=== PATIENT | female | born 1995 | race American Indian/Alaskan Native ===

== ENCOUNTER 2018-10-14 19:41 | Outpatient (CLI) | payer OTHER ==
[2018-10-14] MEDS ORDERED: LACTATED RINGERS 1,000 ML ONE (20:50)
[2018-10-14 21:18] LABS: Mucus,Urine 3+ /HPF
[2018-10-14 21:19] LABS: Bilirubin,Urine NEG (Negative); Blood,Urine NEG (Negative); Color,Urine Amber (Yellow)
[2018-10-14] MEDS ORDERED: LACTATED RINGERS 1,000 ML IV ONE (21:28)
[2018-10-14 23:07] VITALS: BP 107/65
== END 2018-10-14 23:00 | disposition home or self-care (01) ==
LOC: TRG 19:41
PROVIDERS: ATTEND Obstetrics & Gynecology
DX: O47.02 False labor before 37 completed weeks of gestation, second trimester (principal); Z3A.23 23 weeks gestation of pregnancy
CPT/HCPCS: 81001; J7120

== ENCOUNTER 2018-12-24 11:57 | Outpatient (CLI) | payer OTHER ==
[2018-12-24] MEDS ORDERED: LACTATED RINGERS 500 ML IV ONE (12:00)
[2018-12-24 12:54] LABS: Bilirubin,Urine NEG (Negative); Blood,Urine NEG (Negative); Calcium Oxalate Crystals,Urine FEW; Color,Urine Straw (Yellow); Protein,Urine <15 mg/dL mg/dL (Negative); WBC,Urine < 1.0 /HPF (0.0-6.0)
[2018-12-24] MEDS ORDERED: LACTATED RINGERS 1,000 ML ONE (15:23)
== END 2018-12-24 16:08 | disposition home or self-care (01) ==
LOC: TRG 11:57
PROVIDERS: ATTEND Obstetrics & Gynecology
DX: O26.893 Other specified pregnancy related conditions, third trimester (principal); R10.9 Unspecified abdominal pain; O60.03 Preterm labor without delivery, third trimester; O99.333 Smoking (tobacco) complicating pregnancy, third trimester; F17.200 Nicotine dependence, unspecified, uncomplicated; Z3A.33 33 weeks gestation of pregnancy
CPT/HCPCS: 59025; 81001; J7120; 96360

== ENCOUNTER 2019-01-11 15:24 | Observation (INO) | payer OTHER ==
[2019-01-11] MEDS ORDERED: BRETHINE SUB-Q ONE (16:21)
[2019-01-11] MEDS ORDERED: CELESTONE SOLUSPAN IM STA (16:21)
[2019-01-11] MEDS ORDERED: LACTATED RINGERS 1,000 ML IV ONE (16:21)
[2019-01-11] MEDS ORDERED: BRETHINE SUB-Q STA (16:59)
[2019-01-11] MEDS ORDERED: BRETHINE IVP PRN (17:45)
[2019-01-11] MEDS ORDERED: LACTATED RINGERS 1,000 ML IV SCH (19:00)
[2019-01-11 20:15] LABS: Basophils % (Auto) 0.1 % (0.0-1.8); Eosinophils % (Auto) 0.2 % (0.0-4.3); Hematocrit 29.5 % (30.3-42.9); Hemoglobin 9.3 gm/dl (10.1-14.3); Lymphocytes # (Auto) 2.5 K/mm3 (1.2-5.4); Lymphocytes % (Auto) 24.7 % (13.4-35.0); Mean Corpuscular HGB Conc 32 % (30-34); Mean Corpuscular Volume 79 fl (79-97); Monocytes # (Auto) 0.8 K/mm3 (0.0-0.8); Monocytes % (Auto) 7.9 % (0.0-7.3); Platelet Count 125 K/mm3 (140-440); Red Blood Count 3.71 M/mm3 (3.65-5.03); Red Cell Distribution Width 14.8 % (13.2-15.2)
[2019-01-11] MEDS ORDERED: AMPICILLIN/NS 2 GM/100 ML 2 GM/100 ML BAG IV ONE (20:20)
[2019-01-11] MEDS ORDERED: STADOL IV PRN (20:21)
[2019-01-11] MEDS ORDERED: MAGNESIUM SULFATE 40GM/1000ML 40 GM/1,000 ML BAG IV SCH (20:28)
[2019-01-11] MEDS ORDERED: MAGNESIUM SULFATE 4GM/100ML 4 GM/100 ML BAG IV ONE (20:34)
--- NOTE | 2019-01-11 21:25 | Ultrasound Report ---
PROCEDURE: US OB LIMITED TECHNIQUE: Real-time limited sonographic examination was performed for evaluation of position and amniotic fluid index for each fetus with image documentation (1 or more fetuses). HISTORY: DESTINI and presentation COMPARISONS: None . FINDINGS: FETUS IUP: Single living intrauterine . Position: Cephalic . Placental position: Fundal, without previa . Amniotic fluid volume: Normal. Amniotic fluid index is 7.5 cm Heart rate and rhythm: 146 BPM, Regular . IMPRESSION: presentation is cephalic and the amniotic fluid index is within normal limits This document is electronically signed by Juan Love MD., Jan 11 2019 09:23:04 PM ET
--- NOTE | 2019-01-11 21:26 | Ultrasound Report ---
PROCEDURE: US OB BPP WO NON-STRESS TECHNIQUE: Sonographic evaluation for breathing, movement, tone, and amniotic flui d volume was performed. HISTORY: Pre-term COMPARISONS: None . FINDINGS: FETUS Amniotic fluid volume Normal-score 2. At least one vertical pocket >2 cm or more in vertical axis . breathing: Normal-score 2 . movement: Normal-score 2 . tone: Normal-score 2 . Score: 8 of 8 . heart rate is 146 bpm IMPRESSION: Normal biophysical profile . This document is electronically signed by Juan Love MD., Jan 11 2019 09:24:03 PM ET
[2019-01-12] MEDS: AMPICILLIN/NS 1 GM/50 ML 1 GM/50 ML BAG IV SCH ×7 (05:00→21:49)
[2019-01-12] MEDS: LACTATED RINGERS 1,000 ML IV SCH ×2 (10:19→21:52)
[2019-01-13] MEDS: AMPICILLIN/NS 1 GM/50 ML 1 GM/50 ML BAG IV SCH ×3 (01:53→09:43)
[2019-01-13] MEDS: LACTATED RINGERS 1,000 ML IV SCH (05:49)
[2019-01-13 09:47] VITALS: BP 93/50
--- NOTE | 2019-01-13 14:23 | History and Physical Report ---
History of Present Illness Date of examination: 01/13/19 Date of admission: 01/11/19 18:24 Chief complaint: This is a 23 yo at 35+6 weeks here for contractions. She was noted to be 3cm and bernice. She admits to bernice for 1 day and came in. She roports good movement. No vb nor leaking. Denies sierra, bv, scotomata nor ruq pain. 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 Records unavailable. Past History Past Medical History: no pertinent history Past Surgical History: no surgical history Family/Genetic History: none Social history: single. denies: smoking, alcohol abuse, prescription drug abuse - Obstetrical History Expected Date of Delivery: 02/09/19 Actual Gestation: 36 Week(s) 1 Day(s) : 2 Para: 1 Hx # Term Pregnancies: 1 Number of Pregnancies: 0 Spontaneous Abortions: 0 Induced : 0 Number of Living Children: 1 Medications and Allergies Allergies Allergy/AdvReac Type Severity Reaction Status Date / Time No Known Allergies Allergy Unverified 10/14/18 20:29 Home Medications Medication Instructions Recorded Confirmed Last Taken Type No Known Home Medications [No 01/11/19 01/11/19 Unknown History Reported Home Medications] Active Meds: Active Medications Butorphanol Tartrate (Stadol) 2 mg IV Q2H PRN PRN Reason: Labor Pain Last Admin: 01/11/19 22:02 Dose: 2 mg Documented by: Lactated Ringer's (Lactated Ringers) 1,000 mls @ 125 mls/hr IV DIRECT LEONARD Last Admin: 01/13/19 05:49 Dose: 125 mls/hr Documented by: Ampicillin Sodium (Ampicillin/Ns 1 Gm/50 Ml) 1 gm in 50 mls @ 100 mls/hr IV Q4HR LEONARD; Protocol Last Admin: 01/13/19 09:43 Dose: 100 mls/hr Documented by: Review of Systems All systems: negative Constitutional: no fever, no chills Genitourinary: contractions, no vaginal bleeding, no leakage of fluid - Vital Signs Vital signs: Vital Signs Pulse BP Pulse Ox 100 H 111/67 94 01/11/19 15:49 01/11/19 15:49 01/11/19 15:49 Temp Pulse Resp BP Pulse Ox 97.9 F 103 H 16 93/50 100 01/13/19 01:34 01/13/19 09:45 01/13/19 01:34 01/13/19 09:45 01/11/19 17:48 - Physical Exam Breasts: Positive: normal Cardiovascular: Regular rate, Normal S1 Lungs: Positive: Clear to auscultation, Normal air movement Abdomen: Positive: normal appearance, soft, normal bowel sounds. Negative: distention, tenderness, guarding Genitourinary (Female): Positive: normal external genitalia, normal perenium Vagina: Positive: normal moisture Uterus: Positive: normal size, enlarged Anus/Rectum: Positive: normal perianal skin Extremities: Positive: normal. Negative: tenderness Deep Tendon Reflex Grade: Normal +2 - Obstetrical FHR: category 1 Cervical Dilatation: 3 Uterine Contraction Pattern: Regular Uterine Tone Measurement Phase: Contraction Uterine Contraction Intensity: Mild Results Result Diagrams: 01/11/19 19:42 All other labs normal. Assessment and Plan A/P Late entry to note from yesterday HD#2 labor GBS unknown records unavailable IVF, labs observation s/p course of BMZ stable -no change in cervix for >24 hrs ; no contractions reassuring APT testing : 01/12 BPP 8/8 DESTINI 7.5 Discharge home with f/u tomorrow to [facility] appt on Spoke with Dr. Claritza Valadez concerning her care
== END 2019-01-13 14:49 | disposition home or self-care (01) ==
LOC: TRG 15:24 → LD 18:24
PROVIDERS: ADMIT Obstetrics & Gynecology; ATTEND Obstetrics & Gynecology
DX: O62.9 Abnormality of forces of labor, unspecified (principal); O60.03 Preterm labor without delivery, third trimester; Z3A.36 36 weeks gestation of pregnancy
CPT/HCPCS: 36415; 59025; 76815; 76819; 83735; 85025; 86850; 86900; 86901; 96365; 96366; 96368; 96372; 96375; G0378; J0290; J0595; J0702; J3105; J3475; J7120; 96360

== ENCOUNTER 2019-01-16 15:12 | Inpatient (IN) | payer OTHER ==
[2019-01-16] MEDS ORDERED: AMPICILLIN/NS 2 GM/100 ML 2 GM/100 ML BAG IV ONE (21:20)
[2019-01-16] MEDS ORDERED: BRETHINE SUB-Q PRN (21:20)
[2019-01-16] MEDS ORDERED: XYLOCAINE 2% INFILTRATI ONE (21:20)
[2019-01-16] MEDS ORDERED: BRETHINE IVP PRN (21:20)
[2019-01-16] MEDS ORDERED: MINERAL OIL PO PRN (21:20)
[2019-01-16] MEDS ORDERED: PITOCin/NS 30 UNIT/500ML 30 UNITS/500 ML BAG IV SCH (21:22)
[2019-01-16] MEDS: LACTATED RINGERS 1,000 ML IV SCH (21:56)
[2019-01-16] MEDS ORDERED: PITOCin/NS 20 UNIT/1000ML DRIP 20 UNITS/1,000 ML BAG IV SCH (22:00)
[2019-01-16] MEDS ORDERED: AMPICILLIN/NS 1 GM/50 ML 1 GM/50 ML BAG IV SCH (22:00)
[2019-01-16] MEDS ORDERED: LACTATED RINGERS 1,000 ML IV SCH (22:00)
[2019-01-16 22:08] LABS: Hematocrit 25.4 % (30.3-42.9); Hemoglobin 8.5 gm/dl (10.1-14.3); Mean Corpuscular HGB Conc 34 % (30-34); Mean Corpuscular Volume 78 fl (79-97); Platelet Count 122 K/mm3 (140-440); Red Blood Count 3.25 M/mm3 (3.65-5.03); Red Cell Distribution Width 15.2 % (13.2-15.2)
[2019-01-17] MEDS: LACTATED RINGERS 1,000 ML IV SCH (03:19)
[2019-01-17] MEDS: STADOL IV PRN ×2 (03:30→06:05)
[2019-01-17] MEDS ORDERED: STADOL IV PRN (03:40)
--- NOTE | 2019-01-17 06:47 | History and Physical Report ---
History of Present Illness Date of examination: 01/17/19 (04:40) Date of admission: 01/16/19 19:05 Chief complaint: Sent to L&D for IOL per [facility] for Oligo History of present illness: 23yo AA Fe , JIMI 02/09/19, 36w5d presents for IOL per [facility] recommendation for delivery d/t Oligo (DESTINI 3.24cm) and SGA. Pt has had early and consistent care with [facility]. records available, reviewed and scanned into chart. [facility] report available and reviewed for IOL indication. Pt has known Hx of Bipolar not on any current meds. course complicated by positive chlamydia 06/24/18 with negative KATJA. 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 denies: abnormal PAP smear, chlamydia, gonorrhea, hepatitis B, herpes, HIV, syphilis, trichomonas Family/Genetic History: none Social history: no significant social history, single, lives with family, full code. denies: smoking, alcohol abuse, prescription drug abuse, IV drug use - Obstetrical History Expected Date of Delivery: 02/09/19 Actual Gestation: 36 Week(s) 5 Day(s) : 3 Para: 2 Hx # Term Pregnancies: 2 Number of Pregnancies: 0 Spontaneous Abortions: 0 Induced : 0 Number of Living Children: 2 Medications and Allergies Allergies Allergy/AdvReac Type Severity Reaction Status Date / Time No Known Allergies Allergy Unverified 10/14/18 20:29 Home Medications Medication Instructions Recorded Confirmed Last Taken Type No Known Home Medications [No 01/11/19 01/16/19 Unknown History Reported Home Medications] Active Meds: Active Medications Butorphanol Tartrate (Stadol) 1 mg IV Q2H PRN PRN Reason: Labor Pain Butorphanol Tartrate (Stadol) 2 mg IV Q2H PRN PRN Reason: Labor Pain Last Admin: 01/17/19 06:05 Dose: 2 mg Documented by: Ephedrine Sulfate (Ephedrine Sulfate) 10 mg IV Q2M PRN PRN Reason: Hypotension Lactated Ringer's (Lactated Ringers) 1,000 mls @ 125 mls/hr IV DIRECT LEONARD Last Admin: 01/17/19 03:19 Dose: 125 mls/hr Documented by: Oxytocin/Sodium Chloride (Pitocin/Ns 20 Unit/1000ml Drip) 20 units in 1,000 mls @ 125 mls/hr IV DIRECT LEONARD Oxytocin/Sodium Chloride (Pitocin/Ns 30 Unit/500ml) 30 units in 500 mls @ 2 mls/hr IV TITR LEONARD; Protocol Last Admin: 01/16/19 21:56 Dose: 4 ml/hr, 4 mls/hr Documented by: Lactated Ringer's (Lactated Ringers) 1,000 mls @ 125 mls/hr IV DIRECT LEONARD Ampicillin Sodium (Ampicillin/Ns 1 Gm/50 Ml) 1 gm in 50 mls @ 100 mls/hr IV Q4HR LEONARD; Protocol Last Admin: 01/17/19 03:19 Dose: 100 mls/hr Documented by: Mineral Oil (Mineral Oil) 30 ml PO QHS PRN PRN Reason: Constipation Terbutaline Sulfate (Brethine) 0.25 mg SUB-Q ONCE PRN PRN Reason: Hyperstimulation/Hypertonicity Terbutaline Sulfate (Brethine) 0.25 mg IVP ONCE PRN PRN Reason: Hyperstimulation/Hypertonicity Review of Systems Eyes: normal appearance Cardiovascular: no chest pain, no shortness of breath Respiratory: no shortness of breath Breasts: normal Gastrointestinal: no nausea, no vomiting, no diarrhea, no constipation Genitourinary: normal appearance, contractions, no vaginal bleeding, no leakage of fluid, no pelvic pain, no genital sores Integumentary: no rash, no sores, no lesions Psychiatric: other (Bipolar disorder) - Vital Signs Vital signs: Vital Signs Temp Resp 97.7 F 18 01/16/19 19:37 01/16/19 19:37 Temp Pulse Resp BP Pulse Ox 97.5 F L 95 H 22 130/81 01/17/19 03:42 01/17/19 05:39 01/17/19 03:42 01/17/19 05:39 - Physical Exam Breasts: Positive: normal Cardiovascular: Regular rate, Normal S1, Normal S2, No murmurs Lungs: Positive: Clear to auscultation, Normal air movement Abdomen: Positive: normal appearance, soft, normal bowel sounds. Negative: distention Genitourinary (Female): Positive: normal external genitalia, normal perenium Vulva: both: normal Vagina: Positive: normal moisture Uterus: Positive: enlarged (SGA) Anus/Rectum: Positive: normal perianal skin Extremities: Positive: normal Deep Tendon Reflex Grade: Normal +2 - Obstetrical FHR: category 1 Uterine Contraction Monitor Mode: External Cervical Dilatation: 6 (@4:40) Cervical Effacement Percentage: 90 station: 0 Uterine Contraction Pattern: Regular Uterine Tone Measurement Phase: Resting Uterine Contraction Intensity: Moderate Results Result Diagrams: 01/16/19 21:35 Abnormal lab results 01/16/19 Range/Units 21:35 RBC 3.25 L (3.65-5.03) M/mm3 Hgb 8.5 L (10.1-14.3) gm/dl Hct 25.4 L (30.3-42.9) % MCV 78 L (79-97) fl MCH 26 L (28-32) pg Plt Count 122 L (140-440) K/mm3 All other labs normal. Assessment and Plan A: IUP at 36w5d Inductionof labor Oligohydramnios (DESTINI 3.24cm) SGA GBS unknown Category 1 tracing P: Admit to L&D; Routine labor orders Pitocin augmentation GBS prophylaxis May have IV pain med/epidural PRN Anticipate
--- NOTE | 2019-01-17 07:45 | Procedure Note ---
OB Delivery Note - Delivery Date of Delivery: 01/17/19 (07:23) Surgeon: RUYD TOLENTINO (SHILO) Estimated blood loss: 200cc - Vaginal Delivery presentation: vertex Delivery position: OA Intrapartum events: none Delivery induction: oxytocin Delivery augmentation: rupture of membranes (721) Delivery monitor: external FHT, external uterine Route of delivery: (07:23) Delivery placenta: spontaneous (07:28) Episiotomy: none Delivery laceration: none Anesthesia: intravenous Delivery comments: AROM 07:22. viable Fe infant, RAJEEV position at 07:23. Vigorous placed skin to skin on mothers abdomen. Delayed cord clamping, then cut by FOB with my guidance. Cord blood collected per protocol. Spontanous erwin delivery of intact placenta at 07:28. 3VC. Discarded. FF@U-2. Bleeding small. No tears or lacerations. and mother left in stable condition in L&D. EBL 200. GBS unknown. Tx x2. - Infant A at 1 minute: 8 at 5 minutes: 9 Gender: Female (6lbs 1 oz, 2738 grams, 18.75")
[2019-01-17] MEDS ORDERED: TYLENOL PO PRN (07:47)
[2019-01-17] MEDS ORDERED: TUCKS PAD TP PRN (09:00)
[2019-01-17] MEDS ORDERED: PHENERGAN PR PRN (09:30)
[2019-01-17] MEDS ORDERED: LANSINOH TP PRN (09:30)
[2019-01-17] MEDS ORDERED: BENADRYL PO PRN (09:30)
[2019-01-17] MEDS ORDERED: SODIUM CHLORIDE FLUSH SYRINGE 10 ML IV PRN (09:30)
[2019-01-17] MEDS ORDERED: ZOFRAN IV PRN (09:30)
[2019-01-17] MEDS ORDERED: PHENERGAN PO PRN (09:30)
[2019-01-17] MEDS ORDERED: DULCOLAX PR PRN (10:00)
[2019-01-17] MEDS: IBUPROFEN PO SCH ×2 (11:12→18:03)
[2019-01-17 19:08] LABS: Hematocrit 25.4 % (30.3-42.9)
[2019-01-17] MEDS ORDERED: MILK OF MAGNESIA PO PRN (22:00)
[2019-01-18] MEDS ORDERED: BOOSTRIX IM ONE (06:00)
[2019-01-18] MEDS: IBUPROFEN PO SCH ×2 (08:22→17:55)
--- NOTE | 2019-01-18 09:02 | Progress Note ---
Assessment and Plan - Patient Problems (1) (normal spontaneous vaginal delivery) Onset Date: 01/18/19 Current Visit: Yes Status: Resolved Plan to address problem: A: S/P - PPD #1 Doing well Asymptomatic anemia - stable P: May go home tomorrow. Subjective - Subjective Date of service: 01/18/19 Principal diagnosis: s/p - PPD #1 Interval history: Pt is feeling well without complaints. Bleeding improved. Patient reports: appetite normal, voiding normally, pain well controlled, flatus, ambulating normally, no dizzy ambulation, no nauseated Toutle: doing well, nursing well, bottle feeding Objective - Vital Signs Latest vital signs: Vital Signs Temp Pulse Resp BP BP Pulse Ox 01/18/19 00:00 98.7 F 77 16 104/78 01/17/19 20:19 98.4 F 95 H 18 111/70 99 01/17/19 16:05 97.2 F L 68 20 115/67 100 01/17/19 13:10 98.1 F 20 116/61 01/17/19 10:00 98.0 F 82 18 104/71 99 01/17/19 09:14 78 124/67 Intake and Output 01/17/19 01/18/19 01/18/19 22:59 06:59 14:59 Intake Total 500 300 Output Total 800 Balance -300 300 Intake: Oral 200 300 Intake, Free Water 300 Output: Urine 800 Void 800 Other: Total, Intake Amount 200 300 Total, Output Amount 800 # Voids Void 1 3 - Exam Breasts: Present: deferred Abdomen: Present: normal appearance, soft Uterus: Present: normal, firm, fundal height below umbilicus Extremities: Present: normal - Labs Labs: Abnormal lab results 01/17/19 Range/Units 18:17 Hgb 8.0 L (10.1-14.3) gm/dl Hct 25.4 L (30.3-42.9) % Laboratory Tests 01/16/19 01/16/19 01/16/19 21:35 21:35 21:35 WBC 10.4 RBC 3.25 L Hgb 8.5 L Hct 25.4 L MCV 78 L MCH 26 L MCHC 34 RDW 15.2 Plt Count 122 L RPR Nonreactive Blood Type O POSITIVE Antibody Screen TNR CHARLY Antibody Screen Negative 01/17/19 18:17 WBC RBC Hgb 8.0 L Hct 25.4 L MCV MCH MCHC RDW Plt Count RPR Blood Type Antibody Screen CHARLY Antibody Screen
--- NOTE | 2019-01-18 14:30 | Discharge Summary ---
Providers - Providers Date of Admission: 01/16/19 19:05 Date of discharge: 01/19/19 Attending physician: NORMA BOOKER Primary care physician: NORMA BOOKER Hospitalization Reason for admission: induction of labor, IUP at term Delivery: Episiotomy: none Laceration: none Other procedures: none complications: none Discharge diagnosis: IUP at term delivered [place] baby: female Hospital course: Unremarkable. Condition at discharge: Good Disposition: DC-01 TO HOME OR SELFCARE - Discharge Diagnoses (1) (normal spontaneous vaginal delivery) Status: Resolved Plan - Discharge Medications Prescriptions: Ferrous Sulfate [Feosol 325 MG tab] 325 mg PO BID #60 tablet Ibuprofen [Motrin] 800 mg PO Q8HR PRN #30 tablet PRN Reason: Pain, Moderate (4-6) Vit-Fe Fumar-FA [ Vitamin] 1 tab PO QDAY #30 tablet - Provider Discharge Summary Activity: routine, no sex for 6 weeks, no heavy lifting 4 weeks, no strenuous exercise Diet: routine Instructions: routine Additional instructions: [] Smoking cessation referral if applicable(refer to patient education folder for contact #) [] Refer to [facility] Booklet Call your doctor immediately for: * Fever > 100.5 * Heavy vaginal bleeding ( >1 pad per hour) * Severe persistent headache * Shortness of breath * Reddened, hot, painful area to leg or breast * Drainage or odor from incision. * Keep incision clean and dry at all times and follow doctor's instructions regarding bathing/showering - Follow up plan Follow up: NORMA BOOKER MD [Primary Care Provider] - 6 Weeks URI RAHMAN CNM [Advanced Practice Nurse] - 6 Weeks
[2019-01-19] MEDS: IBUPROFEN PO SCH ×3 (00:49→10:00)
[2019-01-19] MEDS ORDERED: BOOSTRIX IM ONE (06:00)
[2019-01-19 12:18] VITALS: BP 93/67
== END 2019-01-19 13:00 | disposition home or self-care (01) | DRG 775 ==
LOC: TRG 15:12 → LD 19:05 → OB 01-17 10:07
PROVIDERS: ADMIT Obstetrics & Gynecology; ATTEND Obstetrics & Gynecology
PROC: 10E0XZZ Delivery of Products of Conception, External Approach (ICD-10-PCS; principal; 2019-01-17)
PROC: 3E033VJ Introduction of Other Hormone into Peripheral Vein, Percutaneous Approach (ICD-10-PCS; 2019-01-17)
DX: O41.03X0 Oligohydramnios, third trimester, not applicable or unspecified (principal); O99.02 Anemia complicating childbirth; D64.9 Anemia, unspecified; O99.344 Other mental disorders complicating childbirth; F31.9 Bipolar disorder, unspecified; Z3A.36 36 weeks gestation of pregnancy; Z37.0 Single live birth
CPT/HCPCS: 36415; 85014; 85018; 85027; 86592; 86850; 86900; 86901; 90715; G0378; J0290; J0595; J2590; J7120

== ENCOUNTER 2021-04-20 09:08 | Emergency (ER) | payer OTHER ==
[2021-04-20 09:26] VITALS: BP 106/90
[2021-04-20 12:47] LABS: Monocytes # (Auto) 0.4 K/mm3 (0.0-0.8); Monocytes % (Auto) 7.7 % (0.0-7.3)
[2021-04-20 13:06] LABS: Blood Urea Nitrogen 8 mg/dL (7-17); Calcium 9.4 mg/dL (8.4-10.2); Hemolysis Index 8
[2021-04-20 13:07] LABS: BUN/Creatinine Ratio 16
[2021-04-20 13:32] LABS: Hematocrit 37.8 % (30.3-42.9); Hemoglobin 12.4 gm/dl (10.1-14.3); Red Blood Count 4.46 M/mm3 (3.65-5.03)
[2021-04-20 13:33] LABS: Basophils % (Auto) 0.4 % (0.0-1.8); Eosinophils % (Auto) 0.5 % (0.0-4.3); Lymphocytes # (Auto) 2.3 K/mm3 (1.2-5.4); Lymphocytes % (Auto) 42.9 % (13.4-35.0); Mean Corpuscular HGB Conc 33 % (30-34); Mean Corpuscular Volume 85 fl (79-97); Red Cell Distribution Width 13.7 % (13.2-15.2)
[2021-04-20 13:53] LABS: Bacteria,Urine 1+ /HPF (Negative); Bilirubin,Urine NEG (Negative); Blood,Urine NEG (Negative); Color,Urine Yellow (Yellow); Mucus,Urine 3+ /HPF
--- NOTE | 2021-04-20 14:10 | Ultrasound Report ---
ULTRASOUND OBSTETRIC INDICATION / CLINICAL INFORMATION: Vaginal bleeding pain. Clinical Gestational Age (GA) in weeks, days: 6 weeks 3 days TECHNIQUE: Transabdominal. COMPARISON: None available. FINDINGS: GESTATIONAL SAC: Well-defined oval shape and intrauterine in location. YOLK SAC: No significant abnormality. EMBRYO/FETUS: No significant abnormality. - [place] Length = 0.4 cm = 6 weeks 1 day - Heart Rate, beats per minute (if present) = 118 ADNEXA: No significant abnormality. 0.9 cm cystic lesion in the right ovary may represent a corpus jamir teal cyst. FREE FLUID: None. ADDITIONAL FINDINGS: None. IMPRESSION: 1. Single, living intrauterine with estimated sonographic age of 6 weeks 1 day. Signer Name: Tray Ambrosio MD Signed: 04/20/2021 2:06 PM Workstation Name: [id number]
--- NOTE | 2021-04-20 14:39 | Emergency Department Report ---
ED Female HPI - General Chief complaint: Abdominal Pain Stated complaint: / CRAMPS FEELS LIKE CONTRACTIONS Time Seen by Provider: 04/20/21 11:27 Source: patient, family Mode of arrival: Ambulatory Limitations: No Limitations - History of Present Illness Initial comments: 25-year-old [place] female who had a confirmed 5-week about 1 week ago with her MOP WORKER presents emerged department for continued cramping pain was now but has begun to feel like contractions and was advised to come in to be evaluated she due to follow-up with MOP WORKER April 22, 2021. She reports having no vaginal bleeding for this last 2 weeks but nature of the contraction pain which is what was concerning. She reports no chest pain, no palpitation, no shortness of breath, no fever, chills, sweats. MD Complaint: pelvic pain -: Gradual Location: suprapubic Radiation: suprapubic Severity: mild, moderate Quality: cramping Consistency: constant (And worsening) Improves with: none Worsens with: none Are you Now?: Yes - Related Data Previous Rx's Medication Instructions Recorded Last Taken Type Ferrous Sulfate [Feosol 325 MG tab] 325 mg PO BID #60 tablet 01/18/19 Unknown Rx Ibuprofen [Motrin] 800 mg PO Q8HR PRN #30 tablet 01/18/19 Unknown Rx Vit-Fe Fumar-FA [ 1 tab PO QDAY #30 tablet 01/18/19 Unknown Rx Vitamin] Allergies Allergy/AdvReac Type Severity Reaction Status Date / Time No Known Allergies Allergy Unverified 10/14/18 20:29 ED Review of Systems ROS: Stated complaint: / CRAMPS FEELS LIKE CONTRACTIONS Other details as noted in HPI Comment: All other systems reviewed and negative ED Past Medical Hx - Past Medical History Previous Medical History?: No Hx Hypertension: No Hx Congestive Heart Failure: No Hx Diabetes: No Hx Deep Vein Thrombosis: No Hx Renal Disease: No Hx Sickle Cell Disease: No Hx Seizures: No Hx Asthma: No Hx COPD: No Hx HIV: No Additional medical history: denies - Surgical History Past Surgical History?: No Additional Surgical History: denies - Social History Smoking Status: Never Smoker - Medications Home Medications: Home Medications Medication Instructions Recorded Confirmed Last Taken Type Ferrous Sulfate [Feosol 325 MG tab] 325 mg PO BID #60 tablet 01/18/19 Unknown Rx Ibuprofen [Motrin] 800 mg PO Q8HR PRN #30 tablet 01/18/19 Unknown Rx Vit-Fe Fumar-FA [ 1 tab PO QDAY #30 tablet 01/18/19 Unknown Rx Vitamin] ED Physical Exam - General Limitations: No Limitations General appearance: alert, in no apparent distress - Head Head exam: Present: atraumatic, normocephalic - Eye Eye exam: Present: normal appearance - ENT ENT exam: Present: mucous membranes moist - Neck Neck exam: Present: normal inspection - Respiratory Respiratory exam: Present: normal lung sounds bilaterally. Absent: respiratory distress - Cardiovascular Cardiovascular Exam: Present: regular rate, normal rhythm. Absent: systolic murmur, diastolic murmur, rubs, gallop - GI/Abdominal GI/Abdominal exam: Present: soft, normal bowel sounds - Extremities Exam Extremities exam: Present: normal inspection - Back Exam Back exam: Present: normal inspection. Absent: CVA tenderness (R), CVA tenderness (L) - Neurological Exam Neurological exam: Present: alert, oriented X3, CN II-XII intact - Psychiatric Psychiatric exam: Present: normal affect, normal mood - Skin Skin exam: Present: warm, dry, intact, normal color. Absent: rash ED Course Vital Signs 04/20/21 09:22 Temperature 98 F Pulse Rate 61 Respiratory 20 Rate Blood Pressure 106/90 [Right] O2 Sat by Pulse 96 Oximetry ED Medical Decision Making - Radiology Data Radiology results: report reviewed [facility] [address] [place] [address] XRay Report Signed Patient: MAIKEL VILLASEÑOR MR #: [id number] : 05/05/1990 Acct:[id number] Age/Sex: 30 / F ADM Date: 04/20/21 Loc: ED Attending Dr: Ordering Physician: YEYO MAYEN Date of Service: 04/20/21 Procedure(s): XR chest routine 2V Accession Number(s): [id number] cc: YEYO MAYEN Fluoro Time In Minutes: CHEST 2 VIEWS INDICATION: chest pain cough. COMPARISON: 03/31/2021 FINDINGS: Support devices: None. Heart: Within normal limits. Lungs/pleura: No acute air space or interstitial disease. No pneumothorax. Additional findings: None. IMPRESSION: No acute findings. No change since 03/31/2021. Signer Name: Jason Dickinson Jr, MD Signed: 04/20/2021 11:12 AM Workstation Name: [id number] Transcribed By: TTR Dictated By: JASON DICKINSON JR, MD Electronically Authenticated By: JASON DICKINSON JR, MD Signed Date/Time: 04/20/21 1112 DD/ 1111 TD/TT: Print Cancel - Medical Decision Making 25-year-old [place] female with pelvic cramping associated with her . Based on history and examination and ultrasound the presentation not consistent with an ectopic , molar , life threatening coagulopathy, trauma, serious bacterial infection, central process or other emergency. Plan is to discharge home with return precautions and instruct for prompt MOP WORKER and follow-up with her case keep her appointment scheduled for April 22, 2021 Critical care attestation.: If time is entered above; I have spent that time in minutes in the direct care of this critically ill patient, excluding procedure time. ED Disposition Clinical Impression: related pelvic pain in first trimester, antepartum Disposition: HOME / SELF CARE / HOMELESS Is pt being admited?: No Does the pt Need Aspirin: No Condition: Stable Instructions: Abdominal Pain (ED), Pelvic Pain, Female, Pain Without a Known Cause Additional Instructions: Based on your examination today he was found to have a of 6 weeks 1day. Your examination history ultrasound does not show any ectopic , molar or any life threatening coagulopathy. There is no evidence of any trauma, serious bacterial infection or other emergent process. It is advised to keep your appointment with your MOP WORKER scheduled for April 22, 2021 Referrals: STACY GARCIA MD [Primary Care Provider] - 3-5 Days [facility] [Provider Group] - 3-5 Days
[2021-04-20 17:11] LABS: Platelet Count 105 K/mm3 (140-440)
== END 2021-04-20 15:03 | disposition home or self-care (01) ==
LOC: ED 09:08
DX: O26.891 Other specified pregnancy related conditions, first trimester (principal); R10.2 Pelvic and perineal pain; Z3A.01 Less than 8 weeks gestation of pregnancy
CPT/HCPCS: 36415; 76801; 80048; 81001; 84702; 85025; 99284

== ENCOUNTER 2021-07-10 13:45 | Emergency (ER) | payer OTHER ==
--- NOTE | 2021-07-10 14:14 | Emergency Department Report ---
ED General Adult HPI - General Chief complaint: Syncope Stated complaint: HIT HEAD IN SHOWER Time Seen by Provider: 07/10/21 14:00 Source: patient Mode of arrival: Wheelchair Limitations: No Limitations - History of Present Illness Initial comments: Patient is 25-year-old female with no significant past medical history except for recent in April. Patient presented to the ER complaining of fall. Patient stated that she was going to the bathroom and she felt dizzy and fell and hit her head. Patient is complaining of headache and dizziness. Patient denied any chest pain or shortness of breath. No nausea or vomiting. Severity scale (0 -10): 0 - Related Data Previous Rx's Medication Instructions Recorded Last Taken Type Ferrous Sulfate [Feosol 325 MG tab] 325 mg PO BID #60 tablet 01/18/19 Unknown Rx Ibuprofen [Motrin] 800 mg PO Q8HR PRN #30 tablet 01/18/19 Unknown Rx Vit-Fe Fumar-FA [ 1 tab PO QDAY #30 tablet 01/18/19 Unknown Rx Vitamin] Allergies Allergy/AdvReac Type Severity Reaction Status Date / Time No Known Allergies Allergy Verified 07/10/21 13:51 ED Review of Systems ROS: Stated complaint: HIT HEAD IN SHOWER Other details as noted in HPI Comment: All other systems reviewed and negative Constitutional: denies: chills, fever Respiratory: denies: cough, shortness of breath, SOB with exertion, SOB at rest Cardiovascular: denies: chest pain Gastrointestinal: denies: abdominal pain, nausea, vomiting Musculoskeletal: denies: back pain Neurological: vertigo. denies: headache, weakness, numbness, paresthesias, confusion ED Past Medical Hx - Past Medical History Hx Hypertension: No Hx Congestive Heart Failure: No Hx Diabetes: No Hx Deep Vein Thrombosis: No Hx Renal Disease: No Hx Sickle Cell Disease: No Hx Seizures: No Hx Asthma: No Hx COPD: No Hx HIV: No Additional medical history: denies - Surgical History Additional Surgical History: denies - Social History Smoking Status: Never Smoker - Medications Home Medications: Home Medications Medication Instructions Recorded Confirmed Last Taken Type Ferrous Sulfate [Feosol 325 MG tab] 325 mg PO BID #60 tablet 01/18/19 Unknown Rx Ibuprofen [Motrin] 800 mg PO Q8HR PRN #30 tablet 01/18/19 Unknown Rx Vit-Fe Fumar-FA [ 1 tab PO QDAY #30 tablet 01/18/19 Unknown Rx Vitamin] ED Physical Exam - General Limitations: No Limitations General appearance: alert, in no apparent distress - Head Head exam: Present: atraumatic, normocephalic, normal inspection - Eye Eye exam: Present: normal appearance, PERRL - ENT ENT exam: Present: normal exam, normal orophraynx, mucous membranes moist - Neck Neck exam: Present: normal inspection, full ROM. Absent: tenderness, meningismus - Respiratory Respiratory exam: Present: normal lung sounds bilaterally - Cardiovascular Cardiovascular Exam: Present: regular rate, normal rhythm, normal heart sounds - GI/Abdominal GI/Abdominal exam: Present: soft, normal bowel sounds. Absent: distended, tenderness, guarding, rebound, rigid, organomegaly, mass, bruit, pulsatile mass, hernia - Extremities Exam Extremities exam: Present: normal inspection, full ROM, normal capillary refill. Absent: tenderness - Back Exam Back exam: Present: normal inspection, full ROM. Absent: CVA tenderness (R), CVA tenderness (L) - Neurological Exam Neurological exam: Present: alert, oriented X3, CN II-XII intact - Psychiatric Psychiatric exam: Present: normal mood - Skin Skin exam: Present: warm, intact, normal color ED Course Vital Signs 07/10/21 07/10/21 07/10/21 13:49 14:06 14:14 Temperature 98.4 F 98.0 F 98.0 F Pulse Rate 62 67 83 Respiratory 20 12 14 Rate Blood Pressure 132/78 Blood Pressure 129/92 116/74 [Left] O2 Sat by Pulse 100 99 99 Oximetry ED Medical Decision Making - Lab Data Result diagrams: 07/10/21 14:38 07/10/21 14:38 - EKG Data -: EKG Interpreted by Ia EKG shows normal: sinus rhythm Rate: normal - EKG Data Interpretation: no acute changes - Radiology Data Radiology results: report reviewed - Medical Decision Making Patient is 25-year-old female with no significant past medical history except for recent in April. Patient presented to the ER complaining of fall. Patient stated that she was going to the bathroom and she felt dizzy and fell and hit her head. Patient is complaining of headache and dizziness. Patient denied any chest pain or shortness of breath. No nausea or vomiting. EKG is unremarkable. Labs reviewed and is unremarkable. CT brain is negative for acute finding. Patient remained stable in the ER with a stable vital sign. This is most likely vasovagal reflex. Patient advised to drink more fluids and to follow-up with her primary doctor in the next 2 to 3 days and to return to the ER if she develop any new symptoms. Critical care attestation.: If time is entered above; I have spent that time in minutes in the direct care of this critically ill patient, excluding procedure time. ED Disposition Clinical Impression: Episodic lightheadedness, Dizziness Disposition: 01 HOME / SELF CARE / HOMELESS Is pt being admited?: No Condition: Stable Instructions: Dizziness, [id number] Referrals: PRIMARY CARE, [Primary Care Provider] - 3-5 Days
[2021-07-10 14:15] VITALS: BP 132/78
--- NOTE | 2021-07-10 14:40 | Cat Scan Report ---
CT head without contrast INDICATION : Syncope. TECHNIQUE: Axial imaging performed from the skull apex through the skull base without the use of con trast. All CT scans at this location are performed using CT dose reduction for ALARA by means of aut omated exposure control. COMPARISON: None FINDINGS: Parenchyma: No acute intracranial hemorrhage or parenchymal abnormality. Ventricles: Ventricles are normal in size and appear symmetric. Soft tissues: Soft tissues including the orbits appear normal. Bones: No acute osseous abnormality. Sinuses: Sinuses and mastoid air cells are clear. IMPRESSION: No acute abnormality. Signer Name: Ravindra Torres MD Signed: 07/10/2021 2:36 PM Workstation Name: [id number]
[2021-07-10 14:47] LABS: Basophils % (Auto) 0.5 % (0.0-1.8); Eosinophils # (Auto) 0.1 K/mm3 (0.0-0.4); Eosinophils % (Auto) 1.5 % (0.0-4.3); Lymphocytes # (Auto) 3.2 K/mm3 (1.2-5.4); Lymphocytes % (Auto) 42.9 % (13.4-35.0); Mean Corpuscular HGB Conc 31 % (30-34); Mean Corpuscular Volume 88 fl (79-97); Monocytes # (Auto) 0.7 K/mm3 (0.0-0.8); Platelet Count 121 K/mm3 (140-440); Red Blood Count 4.15 M/mm3 (3.65-5.03); Red Cell Distribution Width 13.6 % (13.2-15.2)
[2021-07-10 14:54] LABS: Hematocrit 36.3 % (30.3-42.9); Hemoglobin 11.1 gm/dl (10.1-14.3)
[2021-07-10 15:12] LABS: Blood Urea Nitrogen 8 mg/dL (7-17); Hemolysis Index 12
[2021-07-10 15:19] LABS: BUN/Creatinine Ratio 11
--- NOTE | 2021-07-11 08:57 | Electrocardiograph Report ---
[facility] Test Date: 2021-07-10 Test Time: 14:31:53 Pat Name: ROYAL JOHNSON Department: Room: Gender: F [place] Technician: SOHAN : 1995 Requested By: DINO FOWLER Order Number: [id number] Reading MD: Isiah Lopez Measurements Intervals Thomas Rate: 61 P: 13 NM: 113 QRS: 45 QRSD: 75 T: 16 QT: 423 QTc: 425 Interpretive Statements Sinus rhythm No previous ECG available for comparison Electronically Signed On 07-11-2021 8:57:23 EST by Isiah Lopez
== END 2021-07-10 16:16 | disposition home or self-care (01) ==
LOC: ED 13:45
DX: R42 Dizziness and giddiness (principal); R51.9 Headache, unspecified
CPT/HCPCS: 36415; 70450; 80048; 84703; 85025; 93005